=== PATIENT | female | born 1975 | race Asian ===

== ENCOUNTER 2018-07-19 20:00 | Inpatient (IN) | payer OTHER ==
[2018-07-19] MEDS ORDERED: Promethazine HCl 25 MG/ML VIAL IM PRN (20:49)
[2018-07-19] MEDS ORDERED: Ondansetron PF 4 MG/2 ML Vial IVP PRN (20:49)
[2018-07-19] MEDS ORDERED: Butorphanol Tartrate 1 MG/ML VIAL SLOW IVP PRN (20:49)
[2018-07-19] MEDS ORDERED: NS / Oxytocin 40 units/1000ml 1,000 ML IV PRN (20:49)
[2018-07-19] MEDS: Lactated Ringer's 1,000 ML IV SCH (21:30)
[2018-07-19 21:49] VITALS: BMI 33.7
[2018-07-19] MEDS ORDERED: Ibuprofen 800 MG TAB PO PRN (22:15)
[2018-07-19] MEDS ORDERED: Penicillin G Potassium 5 MILL.UNITS in Sodium Chloride 0.9% 100 ML IVPB SCH (22:15)
[2018-07-19] MEDS ORDERED: HYDROcodone/Acetaminophen 5/325 mg Tablet PO PRN ×2 (22:15)
[2018-07-19] MEDS ORDERED: NS w/ Oxytocin 10 units 500 ML IV SCH ×2 (22:15)
[2018-07-19] MEDS ORDERED: Lidocaine 1% (PF) 30 ML VIAL SC PRN (22:15)
[2018-07-19 22:29] LABS: Hemoglobin 13.8 g/dL (12.0-16.0); Mean Corpuscular HGB CONC 34.1 g/dL (32.0-36.0); Mean Corpuscular Hemoglobin 32.1 pg (27.0-31.0); Mean Corpuscular Volume 94.2 fL (78.0-98.0); Mean Platelet Volume 7.2 fL (7.4-10.4); Platelet Count 277 thou/uL (130-400); White Blood Cell (WBC) Count 13.3 thou/uL (4.8-10.8)
[2018-07-19 23:57] LABS: HBSAg Index 0.23 S/CO (0-0.99); Hep B Surf Ag Non-Reactive S/CO (NonReactive)
[2018-07-20] MEDS: Penicillin G 2.5 MILL.units 2.5 MILL.UNITS in Premix Bag 1 BAG IVPB SCH ×4 (03:00→16:00)
[2018-07-20] MEDS ORDERED: Fentanyl 4 mcg/Bup 0.1% Cadd 100 ML ONE ×2 (07:11→15:06)
[2018-07-20] MEDS ORDERED: Promethazine HCl 25 MG/ML VIAL IM PRN ×2 (08:02→21:12)
[2018-07-20] MEDS ORDERED: Ondansetron PF 4 MG/2 ML Vial IVP PRN ×2 (08:02→21:12)
[2018-07-20] MEDS ORDERED: Eucerin (Mineral Oil/Petrolatum,White) 30 gm Jar TOP PRN (08:02)
[2018-07-20] MEDS ORDERED: Acetaminophen 325 MG TAB PO PRN (08:02)
[2018-07-20] MEDS ORDERED: Naloxone HCl 0.4 mg/ml Vial IVP PRN ×2 (08:02)
[2018-07-20] MEDS ORDERED: diphenhydrAMINE 50 MG/ML VIAL IVP PRN (08:02)
[2018-07-20] MEDS ORDERED: ePHEDrine/0.9% NaCl/PF SYRINGE 50 mg/10 ml SLOW IVP PRN (08:02)
[2018-07-20] MEDS ORDERED: Lactated Ringer's 500 ML IV PRN (08:02)
[2018-07-20] MEDS ORDERED: Fentanyl 4 mcg/Bupivacaine 0.1% Cassette 100 ML EPIDURAL SCH (08:15)
[2018-07-20] MEDS ORDERED: Communication Order-Pharmacy FS SCH (08:15)
--- NOTE | 2018-07-20 09:10 | PDOC.LDHP ---
Labor and Delivery H&P Chief complaint: scheduled induction HPI: Pt is a 42yo G1 @ 39 weeks here for IOL, known velamentous cord insertion. Current gestational age (weeks): 39 Due date: 07/25/18 Dating criteria: first trimester ultrasound Grav: 1 Para: 0 Current complications: other (AMA, velamentous cord) Abnormal US findings: Yes (velamentous cord insertion) Current medications: pre-jeannie vitamins Previous surgical history: none Allergies/Adverse Reactions: Allergies Allergy/AdvReac Type Severity Reaction Status Date / Time No Known Allergies Allergy Verified 07/19/18 21:56 - Physical Exam Vital signs reviewed and normal: yes General: resting Heart: RRR Lungs: CTAB Abdomen: gravid Extremeties: no edema FHT: category 1 - Vaginal Exam cm dilated: 5 Effacement: 90% Station: 0 - OB Labs Blood type: A RH: positive Antibody Screen: negative HIV: negative RPR: negative HEPSAg: negative 1 hour GCT: negative GBS: positive Urine drug screen: not done Rubella: immune - Assessment L&D Assessment: medically indicated induction (AMA, velamentous cord insertion) - Plan Plan: admit to L&D, labor augmentation if indicated, GBS antibiotic prophylaxis , informed consent obtained, anesthesia consult for pain management -: A/P: IOL with favorable cervix. AROM on exam this AM with clear fluid. FHT reassuring.
[2018-07-20] MEDS ORDERED: Penicillin G 2.5 MILL.units 50 ML ONE (10:16)
[2018-07-20] MEDS ORDERED: NS / Oxytocin 40 units/1000ml 1,000 ML ONE ×2 (10:16→18:09)
--- NOTE | 2018-07-20 10:16 | PDOC.LDPN ---
Labor & Delivery Progress Note - Subjective Subjective: comfortable - Objective Vital signs reviewed and normal: yes General: resting Dilation: 8 Effacement: 90% Station: 0 FHT: category [address] contractions every: q2-5 - Assessment (1) 39 weeks gestation of Code(s): Z3A.39 - 39 WEEKS GESTATION OF Current Visit: Yes Status : Acute (2) AMA (advanced maternal age) primigravida 35+ Code(s): O09.519 - SUPERVISION OF ELDERLY PRIMIGRAVIDA, UNSPECIFIED TRIMESTER Current Visit: Yes Status: Acute Plan: continue plan of care -: A/P: In active labor. Continue plan of care.
[2018-07-20] MEDS: Dextrose 5%-Lactated Ringers 1,000 ML IV SCH (10:30)
[2018-07-20] MEDS ORDERED: Misoprostol 200 MCG TAB ONE (18:09)
[2018-07-20] MEDS ORDERED: Carboprost 250 MCG/ML AMP ONE (18:09)
[2018-07-20] MEDS ORDERED: Methylergonovine 0.2 MG/ML VIAL ONE (18:09)
--- NOTE | 2018-07-20 18:26 | PDOC.OPDEL ---
OB Operative/Delivery Note Delivery Dr/Surgeon: Rohith Pre-Delivery Diagnosis: medically indicated induction (AMA, velamentous cord insertion) Procedure/Post Delivery Dx: operative vaginal delivery (VAVD) Weeks gestation: 39 - Findings A Sex: male - 1 min: 9 - 5 min: 9 - Additional Findings/Plan Placenta delivered: spontaneous Repaired Obstetrical Laceration: left labial Estimated blood loss: 800ml, QBL pending Compilations/Other Findings: VAVD for maternal exhaustion suspected and prolonged 2nd stage. Risk and benefits reviewed prior to consenting to VE. Operative delivery completed with one pull/contraction. No injury noted. PPH/atony noted, resolved w pitocin, methergine and cytotec. Post delivery plan: routine recovery
[2018-07-20] MEDS ORDERED: Adacel (T-DAP) 0.5 ML VIAL IM ONE (21:12)
[2018-07-20] MEDS ORDERED: Bisacodyl 10 MG SUPP PR PRN (21:12)
[2018-07-20] MEDS ORDERED: Milk Of Magnesia 30 ML UDCUP PO PRN (21:12)
[2018-07-20] MEDS ORDERED: Lanolin Ointment 7 GM TUBE TOP PRN (21:12)
[2018-07-20] MEDS ORDERED: HYDROcodone/Acetaminophen 5/325 mg Tablet PO PRN ×2 (21:12)
[2018-07-20] MEDS ORDERED: Preparation H Ointment 28 GM TUBE PR PRN (21:12)
[2018-07-20] MEDS ORDERED: Benzocaine/Menthol 20-0.5% 60 ML CAN TOP PRN (21:12)
[2018-07-20] MEDS ORDERED: NS / Oxytocin 40 units/1000ml 1,000 ML IV SCH (21:12)
[2018-07-20] MEDS ORDERED: diphenhydrAMINE 25 MG CAP PO PRN (21:12)
[2018-07-20] MEDS ORDERED: Docusate Calcium (SURFAK) 240 MG CAP PO SCH (21:30)
[2018-07-20] MEDS: Ibuprofen 800 MG TAB PO SCH (21:50)
[2018-07-21 05:49] LABS: Hemoglobin 10.7 g/dL (12.0-16.0); Mean Corpuscular HGB CONC 33.1 g/dL (32.0-36.0); Mean Corpuscular Hemoglobin 31.5 pg (27.0-31.0); Mean Corpuscular Volume 95.2 fL (78.0-98.0); Mean Platelet Volume 6.9 fL (7.4-10.4); Platelet Count 232 thou/uL (130-400); RBC Distribution Width 11.9 % (11.5-14.5); White Blood Cell (WBC) Count 16.2 thou/uL (4.8-10.8)
[2018-07-21] MEDS: Ibuprofen 800 MG TAB PO SCH ×3 (06:04→21:29)
[2018-07-21] MEDS: Lactated Ringer's 1,000 ML IV SCH (07:35)
[2018-07-21] MEDS: Dextrose 5%-Lactated Ringers 1,000 ML IV SCH (07:36)
[2018-07-21] MEDS: Penicillin G 2.5 MILL.units 2.5 MILL.UNITS in Premix Bag 1 BAG IVPB SCH (07:36)
--- NOTE | 2018-07-21 08:50 | PDOC.PP ---
Post Progress Note Post Day #: 1 Subjective: baby didn't nurse much overnight, sore PO intake tolerated: yes Flatus: yes Ambulation: yes Vital Signs (12 hours) Temp Pulse Resp BP Pulse Ox 07/21/18 04:10 97.9 F 70 20 107/55 L 98 07/21/18 00:05 98.4 F 80 18 105/59 L 95 07/20/18 22:30 98.9 F 89 18 118/57 L 97 07/20/18 21:30 99.6 F 90 18 115/62 98 Weight Weight 197 lb - Physical Examination General: NAD Respiratory: non-labored breathing Abdominal: lochia (normal) Fundus firm & at: below umb Extremities: negative homans (B) Skin: no rash Neurological: no gross focal deficits Psychiatric: A&Ox3, normal affect Result Diagrams: 07/21/18 05:26 Additional Labs: Post Labs Blood Type A POSITIVE 07/19/18 21:45 Hep Bs Antigen Non-Reactive S/CO (NonReactive) 07/19/18 21:45 (1) 39 weeks gestation of Code(s): Z3A.39 - 39 WEEKS GESTATION OF Status: Acute (2) AMA (advanced maternal age) primigravida 35+ Code(s): O09.519 - SUPERVISION OF ELDERLY PRIMIGRAVIDA, UNSPECIFIED TRIMESTER Status: Acute - Assessment/Plan PPD1 doing well sp VAVD for prolonged 2nd stage/maternal exhaustion. LC today.
[2018-07-21] MEDS: Ferrous Sulfate 325 MG TAB PO SCH ×2 (09:55→15:32)
[2018-07-21] MEDS: Docusate Calcium (SURFAK) 240 MG CAP PO SCH ×2 (09:56→21:29)
[2018-07-21] MEDS: Prenatal Vitamin 1 TAB PO SCH (09:56)
[2018-07-22] MEDS: Ibuprofen 800 MG TAB PO SCH ×2 (05:50→12:04)
[2018-07-22] MEDS: Ferrous Sulfate 325 MG TAB PO SCH (08:18)
[2018-07-22] MEDS: Prenatal Vitamin 1 TAB PO SCH (08:23)
[2018-07-22] MEDS: Docusate Calcium (SURFAK) 240 MG CAP PO SCH (08:23)
--- NOTE | 2018-07-22 09:07 | PDOC.PP ---
Post Progress Note Post Day #: 2 Subjective: doing well, baby nursing well PO intake tolerated: yes Flatus: yes Ambulation: yes Weight Weight 197 lb - Physical Examination General: NAD Respiratory: non-labored breathing Abdominal: lochia (normal), no distention Fundus firm & at: below umb Skin: no rash Neurological: no gross focal deficits Psychiatric: A&Ox3, normal affect Result Diagrams: 07/21/18 05:26 Additional Labs: Post Labs Blood Type A POSITIVE 07/19/18 21:45 Hep Bs Antigen Non-Reactive S/CO (NonReactive) 07/19/18 21:45 (1) 39 weeks gestation of Code(s): Z3A.39 - 39 WEEKS GESTATION OF Status: Acute (2) AMA (advanced maternal age) primigravida 35+ Code(s): O09.519 - SUPERVISION OF ELDERLY PRIMIGRAVIDA, UNSPECIFIED TRIMESTER Status: Acute - Assessment/Plan PPD2 sp VAVD, doing well, plan for DC later today.
[2018-07-22 11:21] VITALS: BP 101/55; TEMP 97.8
== END 2018-07-22 13:20 | disposition home or self-care (01) | DRG 807 ==
LOC: L&D 20:27 → 3SW 07-20 20:25
PROVIDERS: ADMIT Obstetrics & Gynecology; ATTEND Obstetrics & Gynecology
PROC: 10907ZC Drainage of Amniotic Fluid, Therapeutic from Products of Conception, Via Natural or Artificial Opening (ICD-10-PCS; 2018-07-19)
PROC: 10D07Z6 Extraction of Products of Conception, Vacuum, Via Natural or Artificial Opening (ICD-10-PCS; principal; 2018-07-20)
PROC: 0KQM0ZZ Repair Perineum Muscle, Open Approach (ICD-10-PCS; 2018-07-20)
DX: O43.123 Velamentous insertion of umbilical cord, third trimester (principal); Z37.0 Single live birth; Z3A.39 39 weeks gestation of pregnancy; O09.513 Supervision of elderly primigravida, third trimester; O99.824 Streptococcus B carrier state complicating childbirth; O75.81 Maternal exhaustion complicating labor and delivery; O63.1 Prolonged second stage (of labor); O70.1 Second degree perineal laceration during delivery
CPT/HCPCS: 36415; 51702; 85027; 86850; 86900; 86901; 87340; J2210; J2540; J3490; J7050